=== PATIENT | female | born 1935 | race Caucasian/White ===

== ENCOUNTER 2017-07-14 14:14 | Emergency (ER) | payer MEDICARE, BC ==
[2017-07-14 14:52] VITALS: BP 124/69
--- NOTE | 2017-07-14 15:23 | UC ---
Isael Stephens Thomas, scribed for Gretel Walker MD on 07/14/17 at 1457 . Complaint Female HPI - HPI Summary HPI Summary: The pt is a 81 y/o F accompanied by her daughter and presenting to [facility] [place] c/o urinary urgency that began two days ago. The patient also complains of pain and pressure with urination. The pain is rated 4/10. The patient has treated the pain with nothing DOWEL POINTER. Pt additionally c/o chills. No fevers. Pt denies N/V/D, fever, back pain, hematuria, and vaginal pruritus, odor. She had similar symptoms two years ago. She is on medication for HTN, HLD, and GERD. She is on ASA 81. PMHx: breast cancer, spinal stenosis, HLD, GERD, anemia. PSHx: hysterectomy, bilateral total hip replacement. SHx: no smoking although household cigarette exposure, rare alcohol use, no illicit drug use. FHx: CAD, ME. The patients PCP is Dr. Garcia - wendyt next Wednesday Patients medication reviewed this visit. - History Of Current Complaint Stated Complaint: URINARY ISSUE Time Seen by Provider: 07/14/17 14:39 Hx Obtained From: Patient, Family/Pier Hand Helper - daughter present Onset/Duration: Lasting Days - 2, Still Present Timing: Constant Pain Intensity: 4 Pain Scale Used: 0-10 Numeric Aggravating Factor(s): Nothing Alleviating Factor(s): Nothing Associated Signs And Symptoms: Negative: Fever, Back Pain, Vaginal Bleeding/ Discharge, Vaginal Discharge, Nausea, Vomiting(# Of Episodes =) Related Hx: Similar Episode/Dx as: - Two years ago - Allergies/Home Medications Allergies/Adverse Reactions: Allergies Allergy/AdvReac Type Severity Reaction Status Date / Time Morphine AdvReac Nausea And Verified 04/08/15 14:54 Vomiting PMH/Surg Hx/FS Hx/Imm Hx Previously Healthy: No - GERD, spinal stenosis, HLD, anemia Cardiovascular History: Hypertension Cancer History: Breast Cancer - Surgical History Surgical History: Yes Surgery Procedure, Year, and Place: RIGHT TOTAL HIP REPLACEMENT- 7 YEARS AGO- [facility]. HYSTERECTOMY- CYSTOCELE AND RECTOCELE- [facility]. TONSILLECTOMY- AGE 38 -3 BLOOD TRANSFUSIONS. LEFT TOTAL HIP REPLACEMENT 03/19/15 - Family History Known Family History: Positive: Hypertension, Other - POS: [place] - Social History Occupation: Retired Lives: With Family Alcohol Use: Rare Alcohol Amount: 1 PER WEEK Substance Use Type: None Smoking Status (MU): Never Smoked Tobacco Household Exposure Type: Cigarettes - Immunization History Most Recent Influenza Vaccination: 2013 Most Recent Tetanus Shot: ?UP TO DATE Most Recent Pneumonia Vaccination: HAS HAD Review of Systems Constitutional: Negative, Other - NEG: fever Skin: Negative Eyes: Negative ENT: Negative Respiratory: Negative Cardiovascular: Negative Gastrointestinal: Negative Genitourinary: Dysuria, Frequency, Urgency, Other - POS: urinary pain (02/15) Motor: Negative Neurovascular: Negative Musculoskeletal: Negative Neurological: Negative Psychological: Negative All Other Systems Reviewed And Are Negative: Yes Physical Exam Triage Information Reviewed: Yes Appearance: Well-Appearing, No Pain Distress, Well-Nourished Vital Signs: Initial Vital Signs Temp 97.9 F 07/14/17 14:48 Pulse 83 07/14/17 14:48 Resp 20 07/14/17 14:48 BP 124/69 07/14/17 14:48 Pulse Ox 96 07/14/17 14:48 Eye Exam: Normal Eyes: Positive: Conjunctiva Clear ENT Exam: Normal ENT: Positive: Normal ENT inspection, Hearing grossly normal, Pharynx normal, TMs normal Dental Exam: Normal Neck exam: Normal Neck: Positive: Supple, Nontender, No Lymphadenopathy Respiratory Exam: Normal Respiratory: Positive: Chest non-tender, Lungs clear, Normal breath sounds Cardiovascular Exam: Normal Cardiovascular: Positive: RRR, No Murmur, Pulses Normal Abdominal Exam: Normal Abdomen Description: Positive: Nontender, No Organomegaly, Soft. Negative: CVA Tenderness (R), CVA Tenderness (L) Bowel Sounds: Positive: Present Musculoskeletal Exam: Normal Musculoskeletal: Positive: Strength Intact Neurological Exam: Normal Neurological: Positive: Alert Skin Exam: Normal Complaint Female Dx - Course Course Of Treatment: The patient is an 81 y/o F who complains of urinary urgency and pain that began two days ago. UA shows + leukocytes. Will start MAcrobid. culture. hydrate. APAP. Pt has PCP appt next Wednesday. pt and daughter in agreement with plan - Differential Dx/Diagnosis Provider Diagnoses: dysuria Discharge - Discharge Plan Condition: Stable Disposition: HOME Prescriptions: Nitrofurantoin Monohyd Macro [Macrobid] 100 mg PO BID #14 cap Patient Education Materials: Urinary Tract Infection in Women (ED) Referrals: Radha VILLA,Edy Kovacs [Primary Care Provider] - Additional Instructions: - stay well hydrated - drink plenty of non-alcoholic, non caffinated beverages - your urine will be further tested - if you require any changes to your treatment, we will contact you - this usually take 2 days - Take antibiotics as prescribed until gone - Contact your primary doctor to arrange a follow-up appointment next week. Contact your doctor or return with questions or concerns - Okay to take Tylenol every 6-8 hours as needed for discomfort The documentation as recorded by the Isael rosales Thomas accurately reflects the service I personally performed and the decisions made by me, Gretel Walker MD.
--- NOTE | 2017-07-16 17:35 | UC ---
Progress - Progress Note Progress Note: CALLED AND SPOKE WITH PT. URINE CULTURE WITH ENTEROBACTER WITH INTERMEDIATE SENSITIVITY TO MACROBID. PT REPORTS SHE IS FEELING BETTER AND HAS F/U WITH PCP ON 07/20/17. ADVISED TO CONTINUE COURSE AND RECHECK URINE WITH PCP. - JORGE LUIS LAST MD
== END 2017-07-14 15:24 | disposition home or self-care (01) ==
LOC: UCEAST 14:14
DX: R30.0 Dysuria (principal); I10 Essential (primary) hypertension; E78.5 Hyperlipidemia, unspecified; K21.9 Gastro-esophageal reflux disease without esophagitis
CPT/HCPCS: 81003; 87077; 87086; 87186; 99212; G0463

== ENCOUNTER 2019-12-15 12:18 | Inpatient (IN) | payer MEDICARE, BC ==
--- NOTE | 2019-12-15 12:22 | ED ---
Lower Extremity - HPI Summary HPI Summary: This pt is an 84 y/o female presenting to [facility] via EMS for left ankle pain s/p slip and fall today. Pt reports she was walking up the ramp into her house after having shoveled today when she slipped and fell. Pt states she landed on left ankle. Denies head strike or LOC. Pt notes she stood up on her left ankle immediately after falling but reports it was very painful. Pt then crawled into her house. Denies any left knee pain, right leg pain, right ankle pain, right knee pain. Denies any prior injury to left ankle. Pt denies any fever, chills, erythema of eyes, sore throat, chest pain, SOB, cough, abd pain, nausea, vomiting, dysuria, hematuria, myalgia, edema, rash, or dizziness. PMHx: HTN. Her PCP is Dr. Muhammad in [place]. Allergies to morphine, reaction is extreme nausea and vomiting. - History of Current Complaint Stated Complaint: L ANKLE DEFORMITY PER EMS Hx Obtained From: Patient, EMS Mechanism Of Injury: Fall From A Standing Position Onset of Pain: Immediate Onset/Duration: Minutes Severity Currently: Moderate Pain Intensity: 4 Pain Scale Used: 0-10 Numeric Timing: Lasting Minutes Location: Is Discrete @ - left ankle Associated Signs And Symptoms: Negative: Fever, Syncope, Knee Pain Aggravating Factor(s): Movement Alleviating Factor(s): Rest Able to Bear Weight: No - Allergies/Home Medications Allergies/Adverse Reactions: Allergies Allergy/AdvReac Type Severity Reaction Status Date / Time morphine Allergy Severe Nausea And Verified 12/15/19 12:25 Vomiting vancomycin Allergy See Comment Verified 12/15/19 12:26 Home Medications: Home Medications Cetirizine* [ZyrTEC 10 MG TAB*] 10 mg PO BEDTIME 12/15/19 [History Confirmed 05/27] Cholecalciferol TAB* [Vitamin D TAB*] 1,000 unit PO DAILY 12/15/19 [History Confirmed 12/15/19] Cranberry 400 mg PO DAILY 12/15/19 [History Confirmed 12/15/19] Furosemide TAB* [Lasix TAB*] 20 mg PO BID 12/15/19 [History Confirmed 12/15/19] Glucosamine CAP (NF) 1,500 cap PO BID 12/15/19 [History Confirmed 12/15/19] Latanoprost 0.005%* [Xalatan 0.005%*] 1 drop BOTH EYES QPM 12/15/19 [History Confirmed 12/15/19] Multivitamins/Minerals TAB* [Theragran/minerals TAB*] 1 tab PO DAILY 12/15/19 [ History Confirmed 12/15/19] Pantoprazole TAB * [Protonix TAB*] 40 mg PO DAILY 12/15/19 [History Confirmed ] Ubidecarenone [Coq-10 Tr] 200 mg PO DAILY 12/15/19 [History Confirmed 12/15/19] PMH/Surg Hx/FS Hx/Imm Hx Endocrine/Hematology History: Denies: Hx Diabetes, Hx Thyroid Disease Cardiovascular History: Reports: Other Cardiovascular Problems/Disorders - RIGHT BUNDLE BRANCH BLOCK- STATES HAS HAD FOR 20 YEARS Denies: Hx Congestive Heart Failure, Hx Hypertension Respiratory History: Denies: Hx Asthma, Hx Chronic Obstructive Pulmonary Disease (COPD) GI History: Reports: Hx Gastroesophageal Reflux Disease - HX OF - PRN MEDICATION FOR, Hx Irritable Bowel Denies: Hx Ulcer History: Reports: Hx Acute Renal Failure Denies: Hx Renal Disease Musculoskeletal History: Reports: Hx Arthritis - "THROUGHOUT" Sensory History: Reports: Hx Cataracts - BILATERAL, Hx Contacts or Glasses - GLASSES, Hx Glaucoma - BILATERAL Denies: Hx Hearing Aid Opthamlomology History: Reports: Hx Cataracts - BILATERAL, Hx Contacts or Glasses - GLASSES, Hx Glaucoma - BILATERAL - Cancer History Cancer Type, Location and Year: Breast - Surgical History Surgical History: Yes Surgery Procedure, Year, and Place: RIGHT TOTAL HIP REPLACEMENT- 7 YEARS AGO- [facility]. HYSTERECTOMY- CYSTOCELE AND RECTOCELE- [facility]. TONSILLECTOMY- AGE 38 -3 BLOOD TRANSFUSIONS. LEFT TOTAL HIP REPLACEMENT 03/19/15 - Dr. Tarango Hx Anesthesia Reactions: Yes - LOW BLOOD PRESSURE WITH HIP SURGERY- [facility]/ [facility]- TONSILLECTOMY Infectious Disease History: Denies: Hx Hepatitis, Hx Human Immunodeficiency Virus (HIV), Hx Shingles - Family History Known Family History: Positive: Hypertension, Other - POS: [place] - Social History Alcohol Use: Rare Alcohol Amount: 1 PER WEEK Substance Use Type: Reports: None Smoking Status (MU): Never Smoked Tobacco Review of Systems Negative: Fever, Chills Negative: Erythema Negative: Sore Throat Negative: Chest Pain Negative: Shortness Of Breath, Cough Negative: Vomiting, Nausea Negative: dysuria, hematuria Musculoskeletal: Other - POSITIVE: left ankle pain, left ankle deformity Negative: Myalgia, Edema Negative: Rash Neurological: Other - NEGATIVE: dizziness All Other Systems Reviewed And Are Negative: Yes Physical Exam - Summary Physical Exam Summary: Constitutional: Well-developed, Well-nourished, Alert. (-) Distressed Skin: Warm, Dry HENT: Normocephalic; Atraumatic Eyes: Conjunctiva normal Neck: Musculoskeletal ROM normal neck. (-) JVD, (-) Stridor, (-) Tracheal deviation Cardio: Rhythm regular, rate normal, Heart sounds normal; Intact distal pulses; The pedal pulses are 2+ and symmetric. Radial pulses are 2+ and symmetric. (-) Murmur Pulmonary/Chest wall: Effort normal. (-) Respiratory distress, (-) Wheezes, (-) Rales Abd: Soft, (-) Tenderness, (-) Distension, (-) Guarding, (-) Rebound Musculoskeletal: Left ankle is deformed and edematous. Patient is able to move toes. Dorsalis pedis pulse is present. Lateral malleolus is tender. Lymph: (-) Cervical adenopathy Neuro: Alert, Oriented x3 Psych: Mood and affect Normal Triage Information Reviewed: Yes Vital Signs On Initial Exam: Initial Vitals Temp Pulse Resp BP Pulse Ox 97.4 F 66 18 161/85 95 12/15/19 12:22 12/15/19 12:22 12/15/19 12:22 12/15/19 12:22 12/15/19 12:22 Vital Signs Reviewed: Yes Procedures - Procedure Summary Procedure Summary: Pre-sedation Assessment I verified that patient has no history of asthma or sleep apnea. Patient has no dentures partials or plates. Patient reports she became hypotensive in surgery previously but has stopped metoprolol since then. Her blood pressure is 160/85 prior to procedure. - Sedation Patient Received Moderate/Deep Sedation with Procedure: Yes Are You The Provider Who Administered The Sedation: [place] of Provider Whom Sedated Patient: Madi Adair - Laboratory Result Diagrams: 12/15/19 13:33 12/15/19 13:33 Lab Statement: Any lab studies that have been ordered have been reviewed, and results considered in the medical decision making process. - Radiology Left ankle XR Radiology Interpretation Completed By: ED Physician - Preliminary read shows ankle dislocation with trimalleolar ankle fracture., Radiologist Summary of Radiographic Findings: IMPRESSION: #. Talocrural joint fracture dislocation. The talus and remainder of the foot are dislocated posteriorly relative to the dominant portion of the tibial plafond and. #. Comminuted lateral malleolus fracture with one bone width lateral and posterior displacement with the lateral malleolus fragment standing aligned with the talus. #. Avulsion fracture at the medial malleolus is also displaced posteriorly with the talus. #. Severe diffuse soft tissue swelling. No subcutaneous emphysema evident. Dr. Morley has reviewed this report. Left foot XR Radiology Interpretation Completed By: Radiologist Summary of Radiographic Findings: IMPRESSION: 1. Dislocation of the talocrural joint. 2. Displaced fracture of the medial and lateral malleoli. Dr. Morley has reviewed this report. Left ankle XR post reduction Radiology Interpretation Completed By: Radiologist Summary of Radiographic Findings: IMPRESSION: Again noted are fractures of the distal tibia and distal fibula with persistent anterior displacement of the tibia with respect to the talus. Dr. Morley has reviewed this report. - EKG 1300 Cardiac Rate: Bradycardia - at 59 bpm EKG Rhythm: Sinus Bradycardia Summary of EKG Findings: EKG at 1300 shows sinus bradycardia at a rate of 59 bpm. No STEMI. This EKG was interpreted and reviewed by ED physician. Re-Evaluation - Re-Evaluation First Eval Re-Evaluation Time: 12:46 Comment: Discussed preliminary read of XRs with patient. Lower Extremity Course/Dx - Course Assessment/Plan: Pt is an 84 y/o female presenting to [facility] via EMS for left ankle pain s/p slip and fall today. Pt reports she was walking up the ramp into her house after having shoveled today when she slipped and fell. Pt states she landed on left ankle. Denies head strike or LOC. Blood work obtained. Left ankle XR shows IMPRESSION: #. Talocrural joint fracture dislocation. The talus and remainder of the foot are dislocated posteriorly relative to the dominant portion of the tibial plafond and. #. Comminuted lateral malleolus fracture with one bone width lateral and posterior displacement with the lateral malleolus fragment standing aligned with the talus. #. Avulsion fracture at the medial malleolus is also displaced posteriorly with the talus. #. Severe diffuse soft tissue swelling. No subcutaneous emphysema evident. Left foot XR shows 1. Dislocation of the talocrural joint. 2. Displaced fracture of the medial and lateral malleoli. Discussed pt care with Dr. Engel, orthopedist, who is requesting a reduction in the ED and he will see the patient. Dr. Engel reports surgery likely this weekend and likely hospitalist admission. Sedation and reduction were performed in the ED. Please see the providers' procedure notes. Discussed with Dr. Damico, hospitalist, who accepted the pt for admission. Post reduction left ankle XR IMPRESSION Again noted are fractures of the distal tibia and distal fibula with persistent anterior displacement of the tibia with respect to the talus. Informed Dr. Engel of unsuccessful reduction. Dr. Engel will come down to see patient and will likely sedate in the ED again. - Diagnoses Provider Diagnoses: Fracture dislocation of left ankle - Physician Notifications Discussed Care Of Patient With: Rambo Engel Time Discussed With Above Provider: 14:15 Instructed by Provider To: Other - Discussed pt care with Dr. Engel, orthopedist, who is requesting a reduction in the ED and he will see the patient. Dr. Engel reports surgery likely this weekend and likely hospitalist admission. [16:07] Informed Dr. Engel of unsuccessful reduction. Dr. Engel will come down to see patient and will likely sedate in the ED again. Discharge ED - Sign-Out/Discharge Documenting (check all that apply): Patient Departure - Admit to [facility] [place] - Discharge Plan Condition: Stable Disposition: ADMITTED TO [facility] Referrals: No Primary Care Phys,NOPCP [Medical Doctor] - - Attestation Statements Document Initiated by Scribe: Yes Documenting Scribe: Cristine Flaherty Provider For Whom Scribe is Documenting (Include Credential): Hayden Mroley MD Scribe Attestation: Cristine Stephens, scribed for Hayden Morley MD on 12/15/19 at 1633. Status of Scribe Document: Viewed
[2019-12-15] MEDS ORDERED: HYDROcodone/ACETAMIN 5-325 MG* 1 TAB PO ONE (12:23)
[2019-12-15 13:43] LABS: Hematocrit 39 % (35-47); Mean Corpuscular HGB Conc 34 g/dL (31-36); Mean Corpuscular Hemoglobin 31 pg (27-31); Mean Corpuscular Volume 93 fL (80-97); Mean Platelet Volume 8.1 fL (7.4-10.4); Platelet Count 203 10^3/uL (150-450); Red Blood Count 4.16 10^6 /uL (3.70-4.87); Red Cell Distribution Width 13 % (10-15); White Blood Count 8.3 10^3/uL (3.5-10.8)
[2019-12-15 13:54] LABS: Activated Partial Thrombo Time 26.2 seconds (26.0-38.0); Albumin 3.9 g/dL (3.2-5.2); Calcium 9.3 mg/dL (8.6-10.3); INR 0.97 (0.82-1.09); Total Bilirubin 0.4 mg/dL (0.2-1.0)
[2019-12-15 14:00] LABS: Albumin/Globulin Ratio 1.4 (1-3); BUN/Creatinine Ratio 22.9 (8-20); EGFR African American 66.7 (>60); EGFR Non-African American 55.1 (>60); Globulin 2.8 g/dL (2-4); Total Protein 6.7 g/dL (6.4-8.9)
[2019-12-15] MEDS ORDERED: Propofol* 10 MG/ML 20 ML BTL IV PUSH ONE ×3 (14:35→16:40)
--- NOTE | 2019-12-15 15:22 | ED ---
ED Sedation - Procedural Sedation/Analgesia Sedation Course: RT Present, Emergency Airway Equipment Available, Informed Consent Obtained, Time Out Completed, End-tidal Capnography Utilized Adverse Reactions Experienced by Patient: None Mallampati Classification: Class IV ASA Classification: Class IV: Severe Systemic Disease/Constant Threat to Health Diagnosis: left medial and lateral malleoli fracture and dislocation Pre-Procedural Heart: S1 and S2 Pre-Procedural Lungs: Clear Auscultation Comment/Plan of Care: reduction of left bimalleolar reduction, using Propofol Provider Procedure Attestation: With My Signature Below, I Attest to have Personally Reviewed and Agree with the Pre-Sedation History and Pre-Service Assessment Update Cleared for Moderate Sedation: Yes Pre-Procedural Diagnosis: left medial and lateral malleoli fracture and dislocation Post-Procedural Diagnosis: left medial and lateral malleoli fracture and dislocation Procedure: reduction of left bimalleolar dislocation Estimated Blood Loss: None Specimen(s): None Findings: None Implants/Tubes/Drains Placed: None Attestations Scribe Attestation: Document initiated by bobby. Tania Stephens scribed for Dr. Madi Adair MD on 12/15/19 at 1525. User Type: Provider with Scribe Provider Attestation: The documentation recorded by the scribe accurately reflects the service I personally performed and the decisions made by me.
--- NOTE | 2019-12-15 15:40 | ED ---
ED Procedures - Procedure Summary Procedure Summary: Pre-sedation Assessment I verified that patient has no history of asthma or sleep apnea. Patient has no dentures partials or plates. Patient reports she became hypotensive in surgery previously but has stopped metoprolol since then. Her blood pressure is 160/85 prior to procedure. - Splinting Left Lower Extremity Location: Left ankle Hand-Made Type: fiberglass - 51 inches used Splint: posterior walking Pre-Proc Neuro Vasc Exam: normal Post-Proc Neuro Vasc Exam: normal Splint Applied by Provider: Jefferson Saleem - Joint Reduction Left Talocrural Joint Reduction Site: ankle (L) Conscious Sedation: Yes - Done by Dr. Adair Reduction Attempts: 1 Pre-Procedure NV Exam: Yes Post Joint Reduction Film: joint not reduced
[2019-12-15] MEDS ORDERED: Acetaminophen TAB* 325 MG PO PRN (16:14)
[2019-12-15] MEDS ORDERED: Al Hydrox/Mg Hydrox/Simet LIQ* 30 ML UDC PO PRN (16:14)
[2019-12-15] MEDS ORDERED: oxyCODONE/Acetamin 5/325 MG* TAB PO PRN (16:14)
[2019-12-15] MEDS ORDERED: hydrALAZINE IV* 20 MG/ML VIAL IV SLOW PU PRN (16:20)
[2019-12-15] MEDS ORDERED: oxyCODONE/Acetamin 5/325 MG* TAB PO ONE (17:03)
--- NOTE | 2019-12-15 17:09 | ED ---
ED Sedation - Procedural Sedation/Analgesia Sedation Course: RT Present, Emergency Airway Equipment Available, Informed Consent Obtained, Time Out Completed, End-tidal Capnography Utilized Adverse Reactions Experienced by Patient: None Mallampati Classification: Class IV ASA Classification: Class IV: Severe Systemic Disease/Constant Threat to Health Diagnosis: left lateral and medial malleoli fracture and dislocation Pre-Procedural Heart: S1 and S2 Pre-Procedural Lungs: Clear Auscultation Comment/Plan of Care: reduction of left bimalleolar dislocation, using Propofol Provider Procedure Attestation: With My Signature Below, I Attest to have Personally Reviewed and Agree with the Pre-Sedation History and Pre-Service Assessment Update Cleared for Moderate Sedation: Yes Pre-Procedural Diagnosis: left lateral and medial malleoli fracture and dislocation Post-Procedural Diagnosis: left lateral and medial malleoli fracture and dislocation Procedure: reduction of left bimalleolar dislocation Estimated Blood Loss: None Specimen(s): None Findings: None Implants/Tubes/Drains Placed: None - Attestation Statements Document Initiated by Scribe: Yes Documenting Scribe: Tania Lai Provider For Whom Sheng is Documenting (Include Credential): Dr. Madi Adair MD Scribe Attestation: I, Tania Lai, scribed for Dr. Madi Adair MD on 12/15/19 at 1850. Scribe Documentation Reviewed: Yes Provider Attestation: The documentation as recorded by the Tania rosales accurately reflects the service I personally performed and the decisions made by me, Dr. Madi Adair MD Status of Scribe Document: Viewed
--- NOTE | 2019-12-15 17:30 | PN ---
Progress Note - Progress Note Date of Service: 12/15/19 Note: CC: Left ankle HPI: 84 yo female, lives alone, went out to shovel snow. Was coming in when she slipped and twisted the left ankle. Immediate pain and deformity. Brought to the ED and x-rays showed a displaced trimalleolar fx. Underwent closed reduction with the ED and sill was displaced. I had been called and did arive for a repeat reduction. PE: Left ankle: splnt was in place. She could wiggle her toes a little, good sensation over the FDWS. A; Displaced ankle fx Plan: Discussed a repeat closed reduction and she was quite willing. She was sedated by Dr. Adair and I performed a reduction. A nice thunk was obtained a sthe ankle slid into place and foot sat straight under the tibia. Posterior mold splint applied. Unfortunately, x-rays showed she was again displaced. Discussed with her and her daughter a open reduction with internal fixation tomorrow AM as she has proved she is unstable and will slide out of place.
--- NOTE | 2019-12-15 18:06 | HP ---
History of Present Illness - History of Present Illness Reason for Visit: Fall with left ankle pain History of Present Illness: Mrs. Arreaga is an 84-year-old female patient with history of HTN, GERD, IBS, chronic renal failure, glaucoma, Breast cancer, and bilateral total hip replacements. Pt reports today around 1030 am she was shoveling snow off wheelchair ramp at her home. Pt's left leg slipped out, pt fell onto ramp injuring left ankle. Pt reports severe pain in left ankle with movement, denies taking medication for pain control. Pt did not strike her head. Prior to and after fall, pt denies dizziness, denies chest pain, denies SOB. Pt denies other injuries. Pt reports that she was unable to stand so she crawled back into her home and called 911. - Past Medical History Cardiac: HTN Gastrointestinal: GERD, Irritable bowel disease Heme/Onc: Cancer - Left Breast Cancer Psych: Anxiety Musculoskeletal: Osteoarthritis ENT: Other - Glaucoma Renal/: Chronic renal failure Grav: 4 - hydatidiform mole 1959 Para: 3 - Past Surgical History Past Surgical History: Cataract Removal, Hysterectomy - 1971, Other - left breast lumpectomy 2016, Total Hip Replacement - Right total hip replacement. Left total hip replacement with exploratory surgery to r/o abcess related to mass seen on xray. No abcess found hematoma only, Tonsillectomy - 1972 - Past Family History Family History: Cancer - Father: "throat cancer" at 92 yoa, DM - father , Other - Father CHF, Mother CHF related to "congenital heart defect" mother at 86 yoa - Past Social History Smoke: No Alcohol: Rare Drugs: None Lives: Alone Domestic Violence: Negative Review of Systems - Measurements Intake and Output: Intake and Output Last 24 Hours 12/13/19 12/14/19 12/15/19 12/16/19 06:59 06:59 06:59 06:59 Weight 188 lb - Review of Systems General Comments: pt denies any unintended weight loss, reports intermittent anorexia related to loss of spouse 07/2019. Poor sleep habits since loss of spouse. Pt denies abnormal bleeding. Constitutional Symptoms: Negative: Weight Gain, Weight Loss, Weakness, Fatigue, Fever, Night Sweats, Unexplained Falls Dermatology: Positive: Normal Negative: Skin Lesions, Cancer, Skin Lumps HEENT: Positive: Normal Negative: Change in Hearing, Vertigo, Dental Problems, Tinnitus, Sinus Problem Eyes: Positive: Glaucoma, Contacts or Glasses Negative: Change in Vision, Double Vision Thyroid: Positive: Normal Pulmonary: Positive: Normal Negative: Cough, Sputum, Hemoptysis, Wheezing, Respiratory Distress, Shortness of Breath, COPD, Asthma, Exercise Intolerance, Home Oxygen Cardiology: Positive: Normal Negative: Chest Pain, Shortness of Breath, Palpitations, Swelling of Ankles, Peripheral Vascular Dis, Edema, Faintness, Syncope, Claudication, Proximal NocturnalDyspnea, Orthopnoea Gastroenterology: Positive: Normal Negative: Abdominal Pain, Nausea, Vomiting, Anorexia, Indigestion, Difficulty Swallowing, Heartburn, Constipation, Diarrhea, Blood in Stools, Change in Bowel Habits, Haematemesis, Melena, Other Genital - Urinary: Positive: Normal Negative: Dysuria, Hematuria, Polyuria, Nocturia, Other Genitourinay - Female: Negative: Menses Normal, Vaginal Discharge, Menopause, Dysmenorrhea, Other Musculoskeletal: Positive: Joint Pain - Left ankle pain Negative: Joint Stiffness, Arthritis, Osteoporosis, Low Back Pain, Sciatica, Kyphoscoliosis Endocrinology: Positive: Normal Negative: Thyroid Problems, Adrenal Problems, Gonadal Problems, Family Hx Endocrine Disorders, Obesity, Diabetes Mellitus, Hyperglycemia, Hx Hypoglycemia , Diabetic Foot Ulcers, Calluses, Hirsutism, Menstrual Abnormalities, Polydipsia , Polyuria, Gonadal Problems, Gynecomastia, Pituitary disease, Other Hematologic/Lymphatic: Negative: Anemia, Easy Bruising, Hx Leukemia, Hx Lymphoma, Use of Anticoagulant, Use of Antiplatelet Drugs, Other Neurology: Positive: Normal Negative: Headache, Migraines, Change in Vision, Diplopia, Dizziness, Change in Balancing, Change in Coordination, Change in Memory, Change in Speech, Change in Sphincter Function, Change in Walking, Numbness\\Paresthesiae, Unexplained Weakness, Hx of Stroke\\TIA, Hx of Seizures, Other Psychiatry: Positive: Anxiety Negative: Normal, Depression, Depressed Mood, Anhedonia, Sexual Dysfunction, Weight Change, Guilt Feelings, Tearfulness, Unusual Fatigue, Unusual Anxiety, Suicidal Ideation, Hypomania, Eating Disorders, Other Allergic/Immunologic: Positive: Other - Morphine: Extreme nausea and vomiting. Vancomycin: Ijeoma syndrome Negative: Hx Anaphylaxis, Hx Angioedema, Hx Environmental, Hx Seasonal, Asthma, Hx HIV, Immunocompromise, Swollen Glands LymphNodes Objective Active Medications: Acetaminophen (Tylenol Tab*) 650 mg PO Q4H PRN PRN Reason: PAIN-MILD/TEMP >/= 100.4 Al Hydrox/Mg Hydrox/Simethicone (Maalox Plus*) 30 ml PO Q6H PRN PRN Reason: INDIGESTION Cetirizine HCl (Zyrtec*) 10 mg PO BEDTIME [facility] Docusate Sodium (Colace Cap*) 100 mg PO BID [facility] Furosemide (Lasix Tab*) 20 mg PO BID [facility] Stop: 12/15/19 23:59 Heparin Sodium (Porcine) (Heparin Vial(*)) 5,000 units SUBCUT Q8HR [facility] Stop: 12/15/19 23:59 Hydralazine HCl (Apresoline Iv*) 5 mg IV SLOW PU Q6H PRN PRN Reason: HTN Latanoprost (Xalatan 0.005%*) 1 drop BOTH EYES QPM [facility] Oxycodone/Acetaminophen (Percocet 5/325 Tab*) 1 tab PO Q4H PRN PRN Reason: PAIN - MODERATE Pantoprazole Sodium (Protonix Tab*) 40 mg PO DAILY [facility] Paroxetine HCl (Paxil Tab*) 10 mg PO QAM [facility] Vital Signs - 8 hr 12/15/19 12/15/19 12/15/19 12:22 12:23 14:31 Temperature 97.4 F Pulse Rate 66 59 Respiratory 18 Rate Blood Pressure 161/85 161/85 (mmHg) O2 Sat by Pulse 95 95 Oximetry 12/15/19 12/15/19 12/15/19 14:46 14:54 14:58 Temperature Pulse Rate 59 62 63 Respiratory Rate Blood Pressure 180/86 161/75 151/75 (mmHg) O2 Sat by Pulse 99 97 96 Oximetry 12/15/19 12/15/19 12/15/19 15:00 15:04 15:06 Temperature Pulse Rate 57 57 Respiratory 18 Rate Blood Pressure 154/73 145/69 (mmHg) O2 Sat by Pulse 98 98 Oximetry 12/15/19 12/15/19 12/15/19 15:16 16:00 16:50 Temperature Pulse Rate 59 60 64 Respiratory Rate Blood Pressure 169/88 178/93 (mmHg) O2 Sat by Pulse 100 98 98 Oximetry 12/15/19 12/15/19 12/15/19 16:54 17:00 17:19 Temperature Pulse Rate 61 59 Respiratory 16 Rate Blood Pressure 147/74 (mmHg) O2 Sat by Pulse 97 97 Oximetry Oxygen Devices in Use Now: Nasal Cannula Appearance: Mrs. Arreaga is an 84 year-old obese, female patient. Laying in ED stretcher with left leg elevated. She does not appear to be in any acute distress. Eyes: No Scleral Icterus, PERRLA Ears/Nose/Mouth/Throat: NL Teeth, Lips, Gums, Clear Oropharnyx, Mucous Membranes Moist Neck: NL Appearance and Movements; NL JVP, Trachea Midline, No Thyroid Enlargement, Masses Respiratory: Symmetrical Chest Expansion and Respiratory Effort, Clear to Auscultation Cardiovascular: NL Sounds; No Murmurs; No JVD, RRR, No Edema Abdominal: NL Sounds; No Tenderness; No Distention, No Hepatosplenomegaly Extremities: No Edema, No Clubbing, Cyanosis, - - +2 dorsalis pedal pulses bilaterally. Left lower leg wrapped in josé luis bandage and splinted following joint reduction by ED physician. Skin: No Rash or Ulcers, No Nodules or Sclerosis Neurological: Alert and Oriented x 3, NL Sensation, NL Muscle Strength and Tone Result Diagrams: 12/15/19 13:33 12/15/19 13:33 Diagnostic Imaging: Imaging in ED. 2 view left ankle interpreted as Talocrural joint fracture dislocation, comminuted lateral malleolus fracture with one bone width lateral and posterior displacement with lateral malleolus fragment standing aligned with the talus. Avulsion fracture at the medial malleolus also displaced posteriorly with the talus. Severe diffuse soft tissue swelling. EKG Data: QRS duration slightly higher from pervious ekg. EKG reading is sinus quirino at 59bpm with nonspecific intraventricular conduction delay and prolonged QRS duration. Assess/Plan/Problems-Billing Assessment: Mrs. Arreaga is an 78-year-old female patient with history of HTN, GERD, Anxiety , Glaucoma, Laryngospasms, Left breast CA, Total R hip arthroplasty, and Total Left hip arthroplasty. Arrives at ED today via ambulance with complaint of left ankle pain with deformity. On evaluation patient was found to have left ankle fracture. She will be admitted inpatient status for: 1. Left ankle fracture. Pt will be admitted to for surgical procedure scheduled 12/16/19 at approx 1000 am. Preop evaluation RCRI score of 3.9% increased 30 Day risk for serious events following surgery. Pt's ACS score for serious complications is 1.7%, for any complications there is a 2.2% risk. There are no modifiable risk factor at this point. Pt is optimized and determined to be an acceptable candidate for the anticipated procedure. 2. HTN: Today patients BP has been elevated all day, systolic 160's to 150's, pt 's PRN dose of lasix will be ordered for hypertension. I will continue pt's home medications HCTZ and PRN lasix. Also for added BP control hydralazine IV ordered PRN Q6H. Pt takes daily HCTZ with good control at home per patient and will take a PRN dose of Lasix if blood pressure is elevated with increased edema in lower extremities. Will hold doses in morning for surgical procedure and restart after, will address on daily basis. 3. Gerd. Asymptomatic for GERD well controlled on pantoprazole. I will order Maalox as needed for added symptom control. 4. Anxiety: Patient has developed anxiety since her 07/2019. Ever since patient has been taking paxil daily. Will continue management of anxiety with paxil in hospital. Pt becomes upset and tearful when speaking about her . pt has also developed sleep and appetite disturbance due to spouses . 5. Glaucoma: Pt is without any symptoms of glaucoma, well controlled with latanoprost will continue medication from home. 6. Laryngospasm: Pt reports that she develops laryngospasms after talking too much, she has found that Levocetirizine at bedtime has decreased the occurrence of laryngospasms. Levocetirizine will be continued throughout admission. 7. Fluids, electrolytes and nutrition: This patient will be NPO after midnight with sips of water for PO medications. 8. DVT prophylaxis: Heparin to be started, one dose prior to surgery. Orthopedic surgeons will decide on post-op resumption of DVT prophylaxis. 9. Advance Directives: Pt's daughter reports she is a DNR and has a MOLST form at home. She will bring form to the hospital tomorrow. - Patient Problems (1) Ankle fracture, left Comment: -Left ankle fracture after slip and fall on ice -Surgical repair 12/16/19 -Moderate pain use percocet -Mild pain use acetaminophen (2) Hypertension Comment: -Hypertension is well controlled at home with HCTZ and PRN Lasix. -Pt will remain on same regimen. -Hydralazine IVP PRN for additional control. (3) Anxiety Current Visit: Yes Status: Acute Code(s): F41.9 - ANXIETY DISORDER, UNSPECIFIED SNOMED Code(s): 14194746 Comment: -Pt becomes teary when speaking about her late also experiences sleep disturbance. -Will continue home regimen of paxil daily. (4) GERD (gastroesophageal reflux disease) Comment: GERD well controlled at home Will continue regimen of pantoprazole Addition of Maalox to regimen PRN for breakthrough reflux. (5) Glaucoma Comment: -Pt is without symptoms of glaucoma. -Well controlled with latanoprost eye drops. -Will continue latanoprost throughout admission. (6) Laryngospasms Comment: -Laryngospasms occure when patient speaks too much -Has found they occur less when takes antihistimine -Will substitute home Zyrtec while in hospital. (7) DVT prophylaxis Comment: -Pt will be started on Heparin for DVT prophylaxis. -Will recieve one dose prior to surgery tomorrow. -Orthopedics will decide if DVT prophylaxis will continue after surgery. Status and Disposition: Inpatient, admit to orthopedics Counseling and/or Coordination of Care Minutes: Time spent on the admission was 60 minutes Points of Discussion: Time spent on the admission was 60minutes, greater than half the time spent face -to-face with the patient obtaining my history and physical, other half time spent going over the plan of care with the patient and implementing plan of care. Dr. Damico in agreement with plan of care. Attending: Nicolasa Damico
[2019-12-15] MEDS ORDERED: Furosemide TAB* 20 MG PO PRN (20:23)
[2019-12-15] MEDS: Atorvastatin* 10 MG TAB PO SCH (20:56)
[2019-12-15] MEDS: Cetirizine* 10 MG TAB PO SCH (20:56)
[2019-12-15] MEDS: Latanoprost 0.005%* 2.5 ml BTL BOTH EYES SCH (20:57)
[2019-12-15] MEDS: Docusate CAP* 100 MG PO SCH (20:57)
[2019-12-15] MEDS ORDERED: LevoCETirizine TAB (NF) 5 MG TAB PO SCH (21:00)
[2019-12-15] MEDS ORDERED: Furosemide TAB* 20 MG PO SCH (21:00)
[2019-12-15] MEDS ORDERED: Heparin VIAL(*) 5000 UNITS/ML VIAL (FIVE THOUSAND) SUBCUT SCH (22:00)
[2019-12-16] MEDS: Aspirin EC TAB* 81 MG TAB.EC PO SCH (07:26)
[2019-12-16] MEDS: Acetaminophen TAB* 325 MG PO SCH ×3 (07:26→23:23)
[2019-12-16] MEDS: Docusate CAP* 100 MG PO SCH ×2 (07:27→21:54)
[2019-12-16] MEDS: Multivitamins/Minerals TAB PO SCH (07:27)
[2019-12-16] MEDS: Cholecalciferol TAB* 1000 UNITS PO SCH (07:27)
[2019-12-16] MEDS: Pantoprazole TAB * 40 MG TAB PO SCH (07:27)
[2019-12-16] MEDS: PARoxetine HCL TAB* 10 MG PO SCH (07:27)
[2019-12-16] MEDS: Vitamin E CAP* 400 UNIT PO SCH (07:27)
[2019-12-16] MEDS: Hydrochlorothiazide TAB* 25 MG PO SCH (07:47)
[2019-12-16] MEDS: oxyCODONE TAB* 5 MG TAB PO PRN ×3 (07:47→21:55)
--- NOTE | 2019-12-16 08:20 | PN ---
Subjective Date of Service: 12/16/19 Interval History: Mr. Arreaga reports that she continues to have pain in her left ankle, last given pain medication about an hour ago. Would welcome additional pain meds. She denies other complaint including chest pain, SOB, nausea or abdominal pain. Was told by Dr Engel that surgery would likely happen around 11am. Objective Active Medications: Acetaminophen (Tylenol Tab*) 975 mg PO TID [facility] Al Hydrox/Mg Hydrox/Simethicone (Maalox Plus*) 30 ml PO Q6H PRN Aspirin (Aspirin Ec Tab*) 81 mg PO DAILY [facility] Atorvastatin Calcium (Lipitor*) 10 mg PO BEDTIME [facility] Cetirizine HCl (Zyrtec*) 10 mg PO BEDTIME [facility] Cholecalciferol (Vitamin D Tab*) 1,000 units PO DAILY [facility] Docusate Sodium (Colace Cap*) 100 mg PO BID [facility] Furosemide (Lasix Tab*) 20 mg PO DAILY [facility] Hydralazine HCl (Apresoline Iv*) 5 mg IV SLOW PU Q6H PRN Hydrochlorothiazide (Hydrodiuril Tab*) 12.5 mg PO DAILY [facility] Latanoprost (Xalatan 0.005%*) 1 drop BOTH EYES QPM [facility] Multivitamins/Minerals (Theragran/Minerals Tab*) 1 tab PO DAILY [facility] Oxycodone HCl (Roxycodone Tab*) 5 mg PO Q4H PRN Oxycodone HCl (Roxycodone Tab*) 10 mg PO Q4H PRN Pantoprazole Sodium (Protonix Tab*) 40 mg PO DAILY [facility] Paroxetine HCl (Paxil Tab*) 10 mg PO QAM [facility] Vitamin E (Vitamin E Cap*) 400 unit PO DAILY [facility] Vital Signs: Temp Pulse Resp BP Pulse Ox 98.8 F 69 18 135/66 92 12/16/19 04:22 12/16/19 04:22 12/16/19 07:47 12/16/19 04:22 12/16/19 04:22 Oxygen Devices in Use Now: None Appearance: Female lying in bed in NAD Eyes: No Scleral Icterus Ears/Nose/Mouth/Throat: Mucous Membranes Moist Neck: Trachea Midline Respiratory: Symmetrical Chest Expansion and Respiratory Effort, Clear to Auscultation Cardiovascular: NL Sounds; No Murmurs; No JVD, No Edema Abdominal: NL Sounds; No Tenderness; No Distention Extremities: No Edema Skin: No Rash or Ulcers Neurological: Alert and Oriented x 3 Nutrition: - - NPO Result Diagrams: 12/15/19 13:33 12/15/19 13:33 Additional Lab and Data: . Diagnostic Imaging: . EKG Data: . Assess/Plan/Problems-Billing Assessment: Mrs. Arreaga is an 78-year-old female patient with history of HTN, GERD, Anxiety , Glaucoma, Laryngospasms, Left breast CA, Total R hip arthroplasty, and Total Left hip arthroplasty who was admitted on 12/15/19 with a left ankle fracture. - Patient Problems (1) Ankle fracture, left Comment: - Plan for surgical repair 12/16/[address] Engel. Preop evaluation RCRI score of 3.9% increased 30 Day risk for serious events following surgery. Pt's ACS score for serious complications is 1.7%, for any complications there is a 2.2% risk. There are no modifiable risk factor at this point. Pt is optimized and determined to be an acceptable candidate for the anticipated procedure. - Pain meds prn with bowel regimen, nurse alerted to need administer additional pain meds this AM. Will change regimen as needed. - Monitor H/H (2) Hypertension Comment: - BP relatively well controlled - Continue hctz with lasix prn (3) Anxiety Comment: - With depression - Continue paxil. (4) Glaucoma Comment: - Continue latanoprost (5) GERD (gastroesophageal reflux disease) Comment: - Continue pantoprazole. (6) Hyperlipidemia Comment: - Continue Zocor (7) DVT prophylaxis Comment: - Hep SQ. (8) DNR (do not resuscitate) Comment: Status and Disposition: Inpatient, anticipate need for rehab.
[2019-12-16] MEDS ORDERED: Pantoprazole TAB * 40 MG TAB PO SCH (09:00)
[2019-12-16] MEDS ORDERED: amLODIPine TAB* 5 MG PO ONE (09:00)
[2019-12-16] MEDS ORDERED: Bupivacaine 0.5%* 50 ML MDV VIAL ONE (09:12)
[2019-12-16] MEDS ORDERED: fentaNYL* 50 MCG/ML 2 ML VIAL (100 MCG VIAL) ONE (09:17)
[2019-12-16] MEDS ORDERED: EPHEDrine (Pressors)* 50 MG/ML VIAL ONE (09:17)
[2019-12-16] MEDS ORDERED: ceFAZolin 2 GM PREMIX in ORs 2 GM/50 ML BAG ONE (09:17)
[2019-12-16] MEDS ORDERED: Ondansetron INJ* 2 MG/ML VIAL ONE (09:17)
[2019-12-16] MEDS ORDERED: Propofol* 10 MG/ML 20 ML BTL ONE (09:17)
[2019-12-16] MEDS ORDERED: Phenylephrine 40 MCG/ML SYRINGE ONE (09:17)
[2019-12-16] MEDS ORDERED: Sugammadex * 200 MG/2 ML VIAL IV PUSH ONE (09:17)
[2019-12-16] MEDS ORDERED: Rocuronium* 10 MG/ML VIAL ONE (09:18)
[2019-12-16] MEDS ORDERED: Lidocaine 2% PF * 5 ML VIAL ONE (09:18)
[2019-12-16] MEDS ORDERED: NS 0.9% 1000 ML** 1,000 ML IV SCH (13:15)
--- NOTE | 2019-12-16 18:16 | OP ---
DATE OF OPERATION: 12/16/19 - ROOM #350 DATE OF : 31 ATTENDING SURGEON: Rambo Engel MD ANESTHESIA: General. PRE-OP DIAGNOSIS: Displaced left ankle fracture/dislocation. POST-OP DIAGNOSIS: Displaced left ankle fracture/dislocation. OPERATIVE PROCEDURE: Open reduction/internal fixation, left ankle fracture. ESTIMATED BLOOD LOSS: 75 cc. COMPLICATIONS: None. SUMMARY: Ms. Arreaga is an 84-year-old female who had slipped coming back in after shoveling snow yesterday. She had an obvious deformity to the ankle, was brought to the emergency room here at [facility] [place]. The ED department attempted to do a closed reduction, which they felt was successful, but she still was dislocated by x-ray. I also had done a closed reduction afterwards with conscious sedation and we had a very specific clunk of relocation and she looked good, and she was splinted, but follow up x-rays in the splint again showed her to be dislocated. I discussed with her she has demonstrated she has a very unstable fracture and then an ORIF should work well to hold the ankle in place while it heals in a more anatomic position. Risk of surgery such as infection, scar formation, stiffness, DVT, pulmonary embolism, ankle stiffness and loss of fixation due to her osteoporosis were some other specifically discussed. She had been admitted by the hospitalist service and declared medically optimized for surgery and she had wished to proceed. DESCRIPTION OF PROCEDURE: The patient was brought to the OR and an LMA was placed. Tourniquet was placed over the proximal left thigh, but was not used during the case. Left ankle was prepped and then draped. Incision was made laterally centered over the fibula and was carried down through the skin and a little bit through the subcutaneous tissues. She had stripped a lot of the tissue away from the proximal portion of the fibula. Distal portion had split to the fibula itself. There was a large anterior butterfly fragment, which was nearly the full thickness of the fibula, I was able to get her nicely reduced, but adjusting her length was a little difficult. Initially, I was going to use one of the anatomic plates, but the way the bone would sit, I could not get the plate flat against her distal bone. Straight plate was then used and placed a little bit more anteriorly. Plate was secured with 1 screw to the more proximal portion of the fibula and then with adjusting and reducing the fracture fragments, I was eventually able to get her nearly anatomic. With the bone right up against the plate, one distal lock was placed and then a second distal lock was placed. Butterfly fragment was then reduced in with an interfrag screw. On the AP, she looked excellent and was trying to get a lateral view and twisting her, my proximal screw loosened a little bit and the plate shifted some. That screw was then traded out for a locking screw and I was able to bring the plate down with a regular screw more proximally and then another locking screw in the plate. Her alignment was excellent by C-arm and wound was then irrigated using a bulb syringe and then closed using 2-0 Vicryl sutures. Skin was closed using a running 3-0 nylon. Attention was turned medially. Incision was made where I could feel the fracture fragments on the medial side, was carried down just through the skin, a little blunt dissection was carried out and I fell right into the fracture. I could again place the fracture just about anywhere but she had a fairly large piece. Gentle dissection was carried out distally and I came into one of the small branches of saphenous nerve, which was easily addressed using the electrocautery. I was able to get a nice reduction and alignment and a guidewire was run into the fragment and into the tibia. This was checked by C- arm and alignment was good. Second guidewire was then placed and a screw was placed over that guidewire and then the initial guidewire, which was larger and heavier was removed and a guidewire for the cannulated system was placed directly in its place. Second screw was placed. AP, mortise, and lateral views were taken and saved. Wound was then irrigated using a bulb syringe and again closed, the subcutaneous tissues were approximated with 2-0 Vicryl. Skin was closed using nylon. Sterile dressing and a posterior mold splint were applied in the OR. The patient had the LMA removed in the OR and was stable on transfer to the recovery room. [id number]/[facility] #: [id number] ERIN
[2019-12-16] MEDS: ceFAZolin 1 GM in Dextrose (*) 1 GM/50 ML BAG IVPB SCH (18:18)
[2019-12-16] MEDS: Atorvastatin* 10 MG TAB PO SCH (21:54)
[2019-12-16] MEDS: Latanoprost 0.005%* 2.5 ml BTL BOTH EYES SCH (21:55)
[2019-12-16] MEDS: Cetirizine* 10 MG TAB PO SCH (21:55)
[2019-12-17] MEDS ORDERED: Acetaminophen TAB* 325 MG PO ONE (00:34)
[2019-12-17] MEDS ORDERED: Piperacillin/Tazobac ADVAN(*) 3.375 GM in NS 0.9% 100 ML* 100 ML IVPB ONE (00:36)
[2019-12-17] MEDS ORDERED: NS 0.9% IV ONE (00:36)
[2019-12-17] MEDS ORDERED: Zosyn per Pharmacy* NOTE FOLLOW UP SCH (01:00)
[2019-12-17 01:24] LABS: ABS Eosinophils 0.1 10^3/ul (0-0.6); ABS Lymphocytes 1.2 10^3/ul (1.0-4.8); ABS Monocytes 1.3 10^3/ul (0-0.8); ABS Neutrophils 5.5 10^3/ul (1.5-7.7); Eosinophil % 1.5 %; Hematocrit 31 % (35-47); Hemoglobin 10.8 g/dL (12.0-16.0); Lymphocyte % 14.9 %; Mean Corpuscular HGB Conc 35 g/dL (31-36); Mean Corpuscular Hemoglobin 33 pg (27-31); Mean Corpuscular Volume 93 fL (80-97); Mean Platelet Volume 8.1 fL (7.4-10.4); Platelet Count 161 10^3/uL (150-450); Red Blood Count 3.34 10^6 /uL (3.70-4.87); Red Cell Distribution Width 13 % (10-15); White Blood Count 8.2 10^3/uL (3.5-10.8)
[2019-12-17 01:45] LABS: Albumin 3.5 g/dL (3.2-5.2); Albumin/Globulin Ratio 1.4 (1-3); BUN/Creatinine Ratio 19.1 (8-20); EGFR Non-African American 47.1 (>60); Globulin 2.5 g/dL (2-4); Potassium 3.4 mmol/L (3.5-5.0); Total Bilirubin 0.4 mg/dL (0.2-1.0)
[2019-12-17] MEDS: ceFAZolin 1 GM in Dextrose (*) 1 GM/50 ML BAG IVPB SCH ×2 (02:29→10:31)
[2019-12-17 02:56] LABS: Urine Appearance Clear; Urine Bilirubin Negative (Negative); Urine Blood Negative (Negative); Urine Color Yellow; Urine Glucose Negative (Negative); Urine Ketones Negative (Negative); Urine Nitrite Negative (Negative); Urine Protein Negative (Negative); Urine Specific Gravity 1.013 (1.010-1.030); Urine Urobilinogen Negative (Negative)
[2019-12-17] MEDS: Lactated Ringers 1000 ML Bag* 1,000 ML IV SCH (03:51)
[2019-12-17] MEDS ORDERED: ZOSYN 3.375 GM Q8H per EXTENDED INFUSION IVPB SCH ×2 (06:00)
[2019-12-17] MEDS: Benzocaine/Menthol LOZ* 1 LOZENGE MT PRN ×2 (06:01→22:38)
[2019-12-17] MEDS ORDERED: Potassium Chlor TAB* 20 MEQ TAB.ER PO ONE (07:28)
--- NOTE | 2019-12-17 08:09 | PN ---
Subjective Date of Service: 12/17/19 Interval History: Pt feels tired. Had problems with "leaky IV" at night and didn't sleep well. Also c/o left ankle pain Objective Active Medications: Acetaminophen (Tylenol Tab*) 975 mg PO TID [facility] Last Admin: 12/16/19 23:23 Dose: Not Given Al Hydrox/Mg Hydrox/Simethicone (Maalox Plus*) 30 ml PO Q6H PRN PRN Reason: INDIGESTION Aspirin (Aspirin Ec Tab*) 81 mg PO DAILY [facility] Last Admin: 12/16/19 07:26 Dose: Not Given Atorvastatin Calcium (Lipitor*) 10 mg PO BEDTIME [facility] Last Admin: 12/16/19 21:54 Dose: 10 mg Cetirizine HCl (Zyrtec*) 10 mg PO BEDTIME [facility] Last Admin: 12/16/19 21:55 Dose: 10 mg Cholecalciferol (Vitamin D Tab*) 1,000 units PO DAILY [facility] Last Admin: 12/16/19 07:27 Dose: Not Given Docusate Sodium (Colace Cap*) 100 mg PO BID [facility] Last Admin: 12/16/19 21:54 Dose: 100 mg Furosemide (Lasix Tab*) 20 mg PO DAILY PRN PRN Reason: SYSTOLIC BP GREATER THAN: Last Admin: 12/15/19 20:56 Dose: 20 mg Heparin Sodium (Porcine) (Heparin Vial(*)) 5,000 units SUBCUT Q12HR [facility] Hydralazine HCl (Apresoline Iv*) 5 mg IV SLOW PU Q6H PRN PRN Reason: HTN Hydrochlorothiazide (Hydrodiuril Tab*) 12.5 mg PO DAILY [facility] Last Admin: 12/16/19 07:47 Dose: 12.5 mg Cefazolin Sodium/Dextrose (Kefzol 1 Gm In Dextrose Duplex (*)) 1 gm in 50 mls @ 200 mls/hr IVPB Q8H [facility] Stop: 12/17/19 10:14 Last Admin: 12/17/19 02:29 Dose: 200 mls/hr Lactated Ringer's (Lactated Ringers 1000 Ml Bag*) 1,000 mls @ 100 mls/hr IV PER RATE [facility] Last Admin: 12/17/19 03:51 Dose: 100 mls/hr Piperacillin Sod/Tazobactam (Sod 3.375 gm/ Sodium Chloride) 100 mls @ 25 mls/ hr IVPB Q8H [facility] Last Admin: 12/17/19 05:55 Dose: 25 mls/hr Latanoprost (Xalatan 0.005%*) 1 drop BOTH EYES QPM [facility] Last Admin: 12/16/19 21:55 Dose: 1 drop Multivitamins/Minerals (Theragran/Minerals Tab*) 1 tab PO DAILY [facility] Last Admin: 12/16/19 07:27 Dose: Not Given Oxycodone HCl (Roxycodone Tab*) 5 mg PO Q4H PRN PRN Reason: PAIN - MODERATE Last Admin: 12/16/19 07:47 Dose: 5 mg Oxycodone HCl (Roxycodone Tab*) 10 mg PO Q4H PRN PRN Reason: PAIN - SEVERE Last Admin: 12/16/19 21:55 Dose: 10 mg Pantoprazole Sodium (Protonix Tab*) 40 mg PO DAILY [facility] Last Admin: 12/16/19 07:27 Dose: Not Given Paroxetine HCl (Paxil Tab*) 10 mg PO QAM [facility] Last Admin: 12/16/19 07:27 Dose: Not Given Pharmacy Consult (Zosyn Per Pharmacy*) 1 note FOLLOW UP .ZOSYN PER PHARMACY [facility] Throat Lozenges (Chloraseptic Jermaine*) 1 jermaine MT Q6H PRN PRN Reason: SORE THROAT Last Admin: 12/17/19 06:01 Dose: 1 jermaine Vitamin E (Vitamin E Cap*) 400 unit PO DAILY [facility] Last Admin: 12/16/19 07:27 Dose: Not Given Vital Signs - 8 hr 12/17/19 04:21 Temperature 99.2 F Pulse Rate 97 Respiratory 18 Rate Blood Pressure 114/52 (mmHg) O2 Sat by Pulse 97 Oximetry Oxygen Devices in Use Now: None Appearance: 84 yo F in nAD, aAOx3 Eyes: No Scleral Icterus, PERRLA Ears/Nose/Mouth/Throat: NL Teeth, Lips, Gums, Mucous Membranes Moist Neck: NL Appearance and Movements; NL JVP, Trachea Midline Respiratory: Symmetrical Chest Expansion and Respiratory Effort Cardiovascular: NL Sounds; No Murmurs; No JVD Abdominal: NL Sounds; No Tenderness; No Distention Lymphatic: No Cervical Adenopathy Extremities: No Clubbing, Cyanosis, - - left ankle in post op dressigns, toes well perfused Skin: No Nodules or Sclerosis Neurological: Alert and Oriented x 3, NL Muscle Strength and Tone Result Diagrams: 12/17/19 01:17 12/17/19 01:17 Additional Lab and Data: . Diagnostic Imaging: . EKG Data: . Assess/Plan/Problems-Billing Assessment: Mrs. Arreaga is an 78-year-old female patient with history of HTN, GERD, Anxiety , Glaucoma, Laryngospasms, Left breast CA, Total R hip arthroplasty, and Total Left hip arthroplasty who was admitted on 12/15/19 with a left ankle fracture. - Patient Problems (1) Ankle fracture, left Comment: - S/p L ankle ORIF with Dr Engel. - cont Pain meds prn with bowel regimen, (2) Anxiety Comment: - With depression - Continue paxil. (3) GERD (gastroesophageal reflux disease) Comment: - Continue pantoprazole. (4) Hypertension Comment: - BP controlled - Continue hctz . Pt is also lasix prn edema at home-will hold for now (5) Postoperative fever Comment: temp of 101.6 last night-poss due to atelectasis cont incentive spirometry monitor (6) DVT prophylaxis Comment: - Hep SQ. Status and Disposition: Inpatient, anticipate need for rehab.
[2019-12-17] MEDS: Cholecalciferol TAB* 1000 UNITS PO SCH (08:42)
[2019-12-17] MEDS: Acetaminophen TAB* 325 MG PO SCH ×3 (08:42→22:23)
[2019-12-17] MEDS: Aspirin EC TAB* 81 MG TAB.EC PO SCH (08:42)
[2019-12-17] MEDS: Docusate CAP* 100 MG PO SCH ×2 (08:42→22:25)
[2019-12-17] MEDS: Multivitamins/Minerals TAB PO SCH (08:43)
[2019-12-17] MEDS: Heparin VIAL(*) 5000 UNITS/ML VIAL (FIVE THOUSAND) SUBCUT SCH ×2 (08:43→22:26)
[2019-12-17] MEDS: Hydrochlorothiazide TAB* 25 MG PO SCH (08:43)
[2019-12-17] MEDS: PARoxetine HCL TAB* 10 MG PO SCH (08:44)
[2019-12-17] MEDS: Pantoprazole TAB * 40 MG TAB PO SCH (08:44)
[2019-12-17] MEDS: Vitamin E CAP* 400 UNIT PO SCH (08:44)
--- NOTE | 2019-12-17 09:01 | PN ---
Progress Note - Progress Note Date of Service: 12/17/19 SOAP: Subjective: POD #1 Left ankle ORIF. Doing ok. C/o pain to ankle. Denies CP/SOB, f/c, n/v. Objective: Vital Signs: Temp Pulse Resp BP Pulse Ox 99.2 F 85 14 134/72 93 12/17/19 08:07 12/17/19 08:07 12/17/19 08:30 12/17/19 08:07 12/17/19 08:07 Gen: A&Ox3, NAD at rest laying in bed LLE: Splint C/D/I. +f/e at MTPs. Sensation intact. Brisk cap refill. Assessment: POD #1 Left ankle ORIF Plan: NWB LLE PMRU consult placed as pt lives alone PT/OT Heparin subcutaneous for DVT ppx Will continue to follow
[2019-12-17] MEDS: oxyCODONE TAB* 5 MG TAB PO PRN ×3 (10:51→22:25)
[2019-12-17] MEDS: Cetirizine* 10 MG TAB PO SCH (22:25)
[2019-12-17] MEDS: Atorvastatin* 10 MG TAB PO SCH (22:25)
[2019-12-17] MEDS ORDERED: Magnesium Hydroxide LIQ* 30 ML UDC PO PRN (22:39)
[2019-12-17] MEDS: Latanoprost 0.005%* 2.5 ml BTL BOTH EYES SCH (23:07)
[2019-12-18] MEDS: Lactated Ringers 1000 ML Bag* 1,000 ML IV SCH (00:21)
[2019-12-18 06:05] LABS: ABS Eosinophils 0.2 10^3/ul (0-0.6); ABS Lymphocytes 1.3 10^3/ul (1.0-4.8); ABS Monocytes 1.1 10^3/ul (0-0.8); ABS Neutrophils 3.7 10^3/ul (1.5-7.7); Eosinophil % 3.3 %; Hematocrit 29 % (35-47); Hemoglobin 9.7 g/dL (12.0-16.0); Lymphocyte % 20.6 %; Mean Corpuscular HGB Conc 33 g/dL (31-36); Mean Corpuscular Hemoglobin 31 pg (27-31); Mean Corpuscular Volume 94 fL (80-97); Mean Platelet Volume 8.3 fL (7.4-10.4); Platelet Count 139 10^3/uL (150-450); Red Blood Count 3.08 10^6 /uL (3.70-4.87); Red Cell Distribution Width 14 % (10-15); White Blood Count 6.3 10^3/uL (3.5-10.8)
[2019-12-18 06:21] LABS: BUN/Creatinine Ratio 16.7 (8-20); Calcium 8.2 mg/dL (8.6-10.3); EGFR African American 84.7 (>60); Potassium 3.9 mmol/L (3.5-5.0)
--- NOTE | 2019-12-18 07:27 | PN ---
Subjective Date of Service: 12/18/19 Interval History: Adequate pain control. Constipated. Sore throat and hoarse from being intubated. Eating OK. Objective Active Medications: Acetaminophen (Tylenol Tab*) 975 mg PO TID [facility] Last Admin: 12/17/19 22:23 Dose: 975 mg Al Hydrox/Mg Hydrox/Simethicone (Maalox Plus*) 30 ml PO Q6H PRN PRN Reason: INDIGESTION Last Admin: 12/17/19 13:40 Dose: 30 ml Aspirin (Aspirin Ec Tab*) 81 mg PO DAILY [facility] Last Admin: 12/17/19 08:42 Dose: 81 mg Atorvastatin Calcium (Lipitor*) 10 mg PO BEDTIME [facility] Last Admin: 12/17/19 22:25 Dose: 10 mg Cetirizine HCl (Zyrtec*) 10 mg PO BEDTIME [facility] Last Admin: 12/17/19 22:25 Dose: 10 mg Cholecalciferol (Vitamin D Tab*) 1,000 units PO DAILY [facility] Last Admin: 12/17/19 08:42 Dose: 1,000 units Docusate Sodium (Colace Cap*) 100 mg PO BID [facility] Last Admin: 12/17/19 22:25 Dose: 100 mg Heparin Sodium (Porcine) (Heparin Vial(*)) 5,000 units SUBCUT Q12HR [facility] Last Admin: 12/17/19 22:26 Dose: 5,000 units Hydralazine HCl (Apresoline Iv*) 5 mg IV SLOW PU Q6H PRN PRN Reason: HTN Hydrochlorothiazide (Hydrodiuril Tab*) 12.5 mg PO DAILY [facility] Last Admin: 12/17/19 08:43 Dose: 12.5 mg Lactated Ringer's (Lactated Ringers 1000 Ml Bag*) 1,000 mls @ 100 mls/hr IV PER RATE [facility] Last Admin: 12/18/19 00:21 Dose: 100 mls/hr Latanoprost (Xalatan 0.005%*) 1 drop BOTH EYES QPM [facility] Last Admin: 12/17/19 23:07 Dose: 1 drop Magnesium Hydroxide (Milk Of Magnesia Liq*) 30 ml PO Q6H PRN PRN Reason: CONSTIPATION Last Admin: 12/17/19 23:06 Dose: 30 ml Multivitamins/Minerals (Theragran/Minerals Tab*) 1 tab PO DAILY [facility] Last Admin: 12/17/19 08:43 Dose: 1 tab Oxycodone HCl (Roxycodone Tab*) 5 mg PO Q4H PRN PRN Reason: PAIN - MODERATE Last Admin: 12/17/19 22:25 Dose: 5 mg Oxycodone HCl (Roxycodone Tab*) 10 mg PO Q4H PRN PRN Reason: PAIN - SEVERE Last Admin: 12/17/19 10:51 Dose: 10 mg Pantoprazole Sodium (Protonix Tab*) 40 mg PO DAILY [facility] Last Admin: 12/17/19 08:44 Dose: 40 mg Paroxetine HCl (Paxil Tab*) 10 mg PO QAM [facility] Last Admin: 12/17/19 08:44 Dose: 10 mg Throat Lozenges (Chloraseptic Jermaine*) 1 jermaine MT Q6H PRN PRN Reason: SORE THROAT Last Admin: 12/17/19 22:38 Dose: 1 jermaine Vitamin E (Vitamin E Cap*) 400 unit PO DAILY [facility] Last Admin: 12/17/19 08:44 Dose: 400 unit Vital Signs - 8 hr 12/18/19 12/18/19 12/18/19 00:11 00:25 03:57 Temperature 99.1 F 98.8 F Pulse Rate 71 71 Respiratory 16 16 16 Rate Blood Pressure 124/55 144/63 (mmHg) O2 Sat by Pulse 95 95 Oximetry Oxygen Devices in Use Now: None Appearance: Alert, partly up in bed. In good spirits. Looks comfortable. Eyes: No Scleral Icterus Ears/Nose/Mouth/Throat: Clear Oropharnyx, Mucous Membranes Moist Respiratory: Symmetrical Chest Expansion and Respiratory Effort, Clear to Auscultation, Clear to Percussion Cardiovascular: NL Sounds; No Murmurs; No JVD, RRR, No Edema, - Extremities: No Edema, No Clubbing, Cyanosis, - - L lower leg bandaged with elastic dressing, and elevated. Skin: No Rash or Ulcers, No Nodules or Sclerosis, - Neurological: Alert and Oriented x 3, NL Sensation Result Diagrams: 12/18/19 05:46 12/18/19 05:46 Additional Lab and Data: . Microbiology and Other Data: Microbiology 12/17/19 01:07 Aerobic Blood Culture - Preliminary Blood Venous No Growth Day 1 Anaerobic Blood Culture - Preliminary No Growth Day 1 12/17/19 01:17 Aerobic Blood Culture - Preliminary Blood Venous No Growth Day 1 Anaerobic Blood Culture - Preliminary No Growth Day 1 Diagnostic Imaging: . EKG Data: . Assess/Plan/Problems-Billing Assessment: Mrs. Arreaga is an 78-year-old female patient with history of HTN, GERD, Anxiety , Glaucoma, Laryngospasms, Left breast CA, Total R hip arthroplasty, and Total Left hip arthroplasty who was admitted on 12/15/19 with a left ankle fracture. - Patient Problems (1) Ankle fracture, left Current Visit: Yes Status: Acute Code(s): S82.892A - OTH FRACTURE OF LEFT LOWER LEG, INIT FOR CLOS FX SNOMED Code(s): 02193697 Comment: - S/p L ankle ORIF with Dr Engel. - cont pain meds prn; scheduled PEG ordered, one dose mag citrate 12/18. PMRU eval requested. Continue OT, PT. (2) Hypertension Current Visit: No Status: Acute Code(s): I10 - ESSENTIAL (PRIMARY) HYPERTENSION SNOMED Code(s): 36244250 Comment: - BP controlled - Continue thiazide . Pt is also lasix prn edema at home-will hold for now (3) Anxiety Current Visit: Yes Status: Acute Code(s): F41.9 - ANXIETY DISORDER, UNSPECIFIED SNOMED Code(s): 94513968 Comment: - With depression - Continue paxil. Status and Disposition: Inpatient, anticipate need for rehab.
[2019-12-18] MEDS: Polyethylene Glycol 3350* 17 GM PACKET PO SCH ×2 (08:49→20:46)
[2019-12-18] MEDS: Acetaminophen TAB* 325 MG PO SCH ×3 (08:49→20:45)
[2019-12-18] MEDS: Vitamin E CAP* 400 UNIT PO SCH (08:50)
[2019-12-18] MEDS: Hydrochlorothiazide TAB* 25 MG PO SCH (08:50)
[2019-12-18] MEDS: oxyCODONE TAB* 5 MG TAB PO PRN (08:51)
[2019-12-18] MEDS: PARoxetine HCL TAB* 10 MG PO SCH (08:51)
[2019-12-18] MEDS: Pantoprazole TAB * 40 MG TAB PO SCH (08:51)
[2019-12-18] MEDS: Aspirin EC TAB* 81 MG TAB.EC PO SCH (08:51)
[2019-12-18] MEDS: Cholecalciferol TAB* 1000 UNITS PO SCH (08:51)
[2019-12-18] MEDS: Docusate CAP* 100 MG PO SCH ×2 (08:52→20:45)
[2019-12-18] MEDS: Multivitamins/Minerals TAB PO SCH (08:52)
[2019-12-18] MEDS: Heparin VIAL(*) 5000 UNITS/ML VIAL (FIVE THOUSAND) SUBCUT SCH ×2 (08:53→20:46)
--- NOTE | 2019-12-18 09:57 | PN ---
Progress Note - Progress Note Date of Service: 12/18/19 SOAP: Subjective: []Pt seen at bedside. She feels well without CP, SOB, dizziness, nausea. L ankle pain well controlled. Lives alone and will need rehab, [facility]RU first choice and [place] second choice. Objective: []Gen: A&Ox3, NAD at rest in a chair LLE: Splint C/D/I. +f/e at MTPs. Sensation intact. Brisk cap refill. Assessment: POD #3 Left ankle ORIF Plan: NWB LLE PMRU consult in place PT/OT Heparin subcutaneous for DVT ppx Will continue to follow, ready for dc from ortho standpoint Vital Signs Temp 98.8 F 12/18/19 07:46 Pulse 66 12/18/19 07:46 Resp 18 12/18/19 08:51 BP 159/74 12/18/19 07:46 Pulse Ox 97 12/18/19 07:46 Intake & Output 12/17/19 12/18/19 12/18/19 18:59 06:59 18:59 Intake Total 480 2220 Output Total 1500 Balance 480 720 Intake: IV Fluids 980 LR 980 Oral 480 1240 Output: Urine 1500 Other: Estimated Void Large # Voids 1 Laboratory Last Values WBC 6.3 10^3/uL (3.5-10.8) 12/18/19 05:46 RBC 3.08 10^6 /uL (3.70-4.87) L 12/18/19 05:46 Hgb 9.7 g/dL (12.0-16.0) L 12/18/19 05:46 Hct 29 % (35-47) L 12/18/19 05:46 MCV 94 fL (80-97) 12/18/19 05:46 MCH 31 pg (27-31) 12/18/19 05:46 MCHC 33 g/dL (31-36) 12/18/19 05:46 RDW 14 % (10-15) 12/18/19 05:46 Plt Count 139 10^3/uL (150-450) L 12/18/19 05:46 MPV 8.3 fL (7.4-10.4) 12/18/19 05:46 Neut % (Auto) 58.8 % 12/18/19 05:46 Lymph % (Auto) 20.6 % 12/18/19 05:46 [place] % (Auto) 16.9 % 12/18/19 05:46 Eos % (Auto) 3.3 % 12/18/19 05:46 Baso % (Auto) 0.4 % 12/18/19 05:46 Absolute Neuts (auto) 3.7 10^3/ul (1.5-7.7) 12/18/19 05:46 Absolute Lymphs (auto) 1.3 10^3/ul (1.0-4.8) 12/18/19 05:46 Absolute Monos (auto) 1.1 10^3/ul (0-0.8) H 12/18/19 05:46 Absolute Eos (auto) 0.2 10^3/ul (0-0.6) 12/18/19 05:46 Absolute Basos (auto) 0.0 10^3/ul (0-0.2) 12/18/19 05:46 Absolute Nucleated RBC 0.0 10^3/ul 12/18/19 05:46 Nucleated RBC % 0.0 12/18/19 05:46 INR (Anticoag Therapy) 0.97 (0.82-1.09) 12/15/19 13:33 APTT 26.2 seconds (26.0-38.0) 12/15/19 13:33 Sodium 140 mmol/L (135-145) 12/18/19 05:46 Potassium 3.9 mmol/L (3.5-5.0) 12/18/19 05:46 Chloride 106 mmol/L (101-111) 12/18/19 05:46 Carbon Dioxide 29 mmol/L (22-32) 12/18/19 05:46 Anion Gap 5 mmol/L (2-11) 12/18/19 05:46 BUN 13 mg/dL (6-24) 12/18/19 05:46 Creatinine 0.78 mg/dL (0.51-0.95) 12/18/19 05:46 Est GFR ( Amer) 84.7 (>60) 12/18/19 05:46 Est GFR (Non-Af Amer) 70.0 (>60) 12/18/19 05:46 BUN/Creatinine Ratio 16.7 (8-20) 12/18/19 05:46 Glucose 121 mg/dL (70-100) H 12/18/19 05:46 Lactic Acid 1.4 mmol/L (0.5-2.0) 12/17/19 03:36 Calcium 8.2 mg/dL (8.6-10.3) L 12/18/19 05:46 Total Bilirubin 0.40 mg/dL (0.2-1.0) 12/17/19 01:17 AST 22 U/L (13-39) 12/17/19 01:17 ALT 12 U/L (7-52) 12/17/19 01:17 Alkaline Phosphatase 57 U/L (34-104) 12/17/19 01:17 Total Protein 6.0 g/dL (6.4-8.9) L 12/17/19 01:17 Albumin 3.5 g/dL (3.2-5.2) 12/17/19 01:17 Globulin 2.5 g/dL (2-4) 12/17/19 01:17 Albumin/Globulin Ratio 1.4 (1-3) 12/17/19 01:17 Urine Color Yellow 12/17/19 02:40 Urine Appearance Clear 12/17/19 02:40 Urine pH 6.0 (5-9) 12/17/19 02:40 Ur Specific [place] 1.013 (1.010-1.030) 12/17/19 02:40 Urine Protein Negative (Negative) 12/17/19 02:40 Urine Ketones Negative (Negative) 12/17/19 02:40 Urine Blood Negative (Negative) 12/17/19 02:40 Urine Nitrate Negative (Negative) 12/17/19 02:40 Urine Bilirubin Negative (Negative) 12/17/19 02:40 Urine Urobilinogen Negative (Negative) 12/17/19 02:40 Ur Leukocyte Esterase Negative (Negative) 12/17/19 02:40 Urine Glucose Negative (Negative) 12/17/19 02:40 Urine Ascorbic Acid * (Negative) A 12/17/19 02:40
[2019-12-18] MEDS ORDERED: Magnesium CITRATE* 300 ML BTL PO ONE (10:00)
[2019-12-18] MEDS: Latanoprost 0.005%* 2.5 ml BTL BOTH EYES SCH ×2 (18:24→21:46)
[2019-12-18] MEDS: Atorvastatin* 10 MG TAB PO SCH (20:45)
[2019-12-18] MEDS: Cetirizine* 10 MG TAB PO SCH (20:45)
[2019-12-18] MEDS: Benzocaine/Menthol LOZ* 1 LOZENGE MT PRN (23:55)
[2019-12-19] MEDS: oxyCODONE TAB* 5 MG TAB PO PRN ×2 (03:43→09:17)
--- NOTE | 2019-12-19 07:48 | PN ---
Progress Note - Progress Note Date of Service: 12/19/19 SOAP: Subjective: []Pt seen and examined at bedside. She feels well without CP, SOB, dizziness or nausea. Ankle with mild pain, well controlled. Objective: []Gen: A&Ox3, NAD at rest in a chair LLE: Splint C/D/I. +f/e at MTPs without pain. Sensation intact. Brisk cap refill. Assessment: POD #4 Left ankle ORIF Plan: NWB LLE PMRU consult in place PT/OT Heparin subcutaneous for DVT ppx Will continue to follow, ready for dc from ortho standpoint Vital Signs Temp 99.3 F 12/19/19 07:42 Pulse 78 12/19/19 07:42 Resp 20 12/19/19 07:42 BP 168/78 12/19/19 07:42 Pulse Ox 94 12/19/19 07:42 Intake & Output 12/18/19 12/19/19 12/19/19 18:59 06:59 18:59 Intake Total 480 600 Output Total 1150 1300 Balance -670 -700 Intake: Oral 480 600 Output: Urine 1150 1300 Other: # Bowel Movements 1 Estimated Stool Amount Medium Large Laboratory Last Values WBC 6.3 10^3/uL (3.5-10.8) 12/18/19 05:46 RBC 3.08 10^6 /uL (3.70-4.87) L 12/18/19 05:46 Hgb 9.7 g/dL (12.0-16.0) L 12/18/19 05:46 Hct 29 % (35-47) L 12/18/19 05:46 MCV 94 fL (80-97) 12/18/19 05:46 MCH 31 pg (27-31) 12/18/19 05:46 MCHC 33 g/dL (31-36) 12/18/19 05:46 RDW 14 % (10-15) 12/18/19 05:46 Plt Count 139 10^3/uL (150-450) L 12/18/19 05:46 MPV 8.3 fL (7.4-10.4) 12/18/19 05:46 Neut % (Auto) 58.8 % 12/18/19 05:46 Lymph % (Auto) 20.6 % 12/18/19 05:46 [place] % (Auto) 16.9 % 12/18/19 05:46 Eos % (Auto) 3.3 % 12/18/19 05:46 Baso % (Auto) 0.4 % 12/18/19 05:46 Absolute Neuts (auto) 3.7 10^3/ul (1.5-7.7) 12/18/19 05:46 Absolute Lymphs (auto) 1.3 10^3/ul (1.0-4.8) 12/18/19 05:46 Absolute Monos (auto) 1.1 10^3/ul (0-0.8) H 12/18/19 05:46 Absolute Eos (auto) 0.2 10^3/ul (0-0.6) 12/18/19 05:46 Absolute Basos (auto) 0.0 10^3/ul (0-0.2) 12/18/19 05:46 Absolute Nucleated RBC 0.0 10^3/ul 12/18/19 05:46 Nucleated RBC % 0.0 12/18/19 05:46 INR (Anticoag Therapy) 0.97 (0.82-1.09) 12/15/19 13:33 APTT 26.2 seconds (26.0-38.0) 12/15/19 13:33 Sodium 140 mmol/L (135-145) 12/18/19 05:46 Potassium 3.9 mmol/L (3.5-5.0) 12/18/19 05:46 Chloride 106 mmol/L (101-111) 12/18/19 05:46 Carbon Dioxide 29 mmol/L (22-32) 12/18/19 05:46 Anion Gap 5 mmol/L (2-11) 12/18/19 05:46 BUN 13 mg/dL (6-24) 12/18/19 05:46 Creatinine 0.78 mg/dL (0.51-0.95) 12/18/19 05:46 Est GFR ( Amer) 84.7 (>60) 12/18/19 05:46 Est GFR (Non-Af Amer) 70.0 (>60) 12/18/19 05:46 BUN/Creatinine Ratio 16.7 (8-20) 12/18/19 05:46 Glucose 121 mg/dL (70-100) H 12/18/19 05:46 Lactic Acid 1.4 mmol/L (0.5-2.0) 12/17/19 03:36 Calcium 8.2 mg/dL (8.6-10.3) L 12/18/19 05:46 Total Bilirubin 0.40 mg/dL (0.2-1.0) 12/17/19 01:17 AST 22 U/L (13-39) 12/17/19 01:17 ALT 12 U/L (7-52) 12/17/19 01:17 Alkaline Phosphatase 57 U/L (34-104) 12/17/19 01:17 Total Protein 6.0 g/dL (6.4-8.9) L 12/17/19 01:17 Albumin 3.5 g/dL (3.2-5.2) 12/17/19 01:17 Globulin 2.5 g/dL (2-4) 12/17/19 01:17 Albumin/Globulin Ratio 1.4 (1-3) 12/17/19 01:17 Urine Color Yellow 12/17/19 02:40 Urine Appearance Clear 12/17/19 02:40 Urine pH 6.0 (5-9) 12/17/19 02:40 Ur Specific [place] 1.013 (1.010-1.030) 12/17/19 02:40 Urine Protein Negative (Negative) 12/17/19 02:40 Urine Ketones Negative (Negative) 12/17/19 02:40 Urine Blood Negative (Negative) 12/17/19 02:40 Urine Nitrate Negative (Negative) 12/17/19 02:40 Urine Bilirubin Negative (Negative) 12/17/19 02:40 Urine Urobilinogen Negative (Negative) 12/17/19 02:40 Ur Leukocyte Esterase Negative (Negative) 12/17/19 02:40 Urine Glucose Negative (Negative) 12/17/19 02:40 Urine Ascorbic Acid * (Negative) A 12/17/19 02:40
[2019-12-19] MEDS: Polyethylene Glycol 3350* 17 GM PACKET PO SCH ×2 (09:16→21:21)
[2019-12-19] MEDS: Multivitamins/Minerals TAB PO SCH (09:17)
[2019-12-19] MEDS: PARoxetine HCL TAB* 10 MG PO SCH (09:17)
[2019-12-19] MEDS: Cholecalciferol TAB* 1000 UNITS PO SCH (09:17)
[2019-12-19] MEDS: Docusate CAP* 100 MG PO SCH ×2 (09:18→21:17)
[2019-12-19] MEDS: Vitamin E CAP* 400 UNIT PO SCH (09:18)
[2019-12-19] MEDS: Acetaminophen TAB* 325 MG PO SCH ×3 (09:18→21:17)
[2019-12-19] MEDS: Pantoprazole TAB * 40 MG TAB PO SCH (09:18)
[2019-12-19] MEDS: Aspirin EC TAB* 81 MG TAB.EC PO SCH (09:19)
[2019-12-19] MEDS: Heparin VIAL(*) 5000 UNITS/ML VIAL (FIVE THOUSAND) SUBCUT SCH ×2 (09:19→21:18)
[2019-12-19] MEDS: Hydrochlorothiazide TAB* 25 MG PO SCH (09:19)
--- NOTE | 2019-12-19 14:01 | DS ---
CC: [facility]; Dr. Rambo Engel * DATE OF ADMISSION: 12/15/2019. ANTICIPATED DATE OF DISCHARGE: 12/20/2019. PRIMARY CARE PHYSICIAN: None, [facility]. ORTHOPEDIC SURGEON: Dr. Rambo Engel. ATTENDING PHYSICIAN: Dr. Naheed Alba * (dictated by LAVELLE Ardon). PRIMARY DIAGNOSIS: Left ankle fracture, status post ORIF 12/16/2019. SECONDARY DIAGNOSES: 1. Hypertension. 2. GERD. 3. IBS. 4. History of left breast cancer. 5. Anxiety. 6. Glaucoma. STUDIES WHILE IN THE HOSPITAL: 1. Left foot x-ray: Impression: Dislocation of the talocrural joint. Displaced fractures of the medial and lateral malleoli. 2. Left ankle, two views: Impression: Talocrural joint fracture dislocation. The talus and remainder of the foot are dislocated posteriorly relative to the dominant portion of the tibial plafond. Comminuted lateral malleolus fracture with one bone width lateral and posterior displacement with the lateral malleolus fragment standing aligned with the talus. Avulsion fracture at the medial malleolus is also displaced posteriorly with the talus. Severe diffuse soft tissue swelling. No subcutaneous emphysema evident. 3. Left ankle, three views: Impression: Again noted are fractures of the distal tibia and distal fibula with persistent anterior displacement of the tibia with respect to the talus. 4. Chest x-ray: Impression: No active cardiopulmonary disease. PROCEDURES WHILE IN THE HOSPITAL: Left ankle open reduction/internal fixation due to left ankle fracture performed by Dr. Engel on 12/16/2019. DISCHARGE MEDICATIONS: Home medications: 1. Ascorbic acid 250 mg p.o. two to three times per day. 2. Aspirin 81 mg p.o. daily. 3. Cetirizine 10 mg p.o. at bedtime. 4. Cholecalciferol 1,000 units p.o. daily. 5. Conjugated Estrogens vaginal cream one application vaginally weekly. 6. Cranberry 400 mg p.o. daily. 7. Furosemide 20 mg p.o. b.i.d. 8. Glucosamine 1500 mg p.o. b.i.d. 9. Hydrochlorothiazide 12.5 mg p.o. daily. 10. Latanoprost one drop to both eyes at bedtime. 11. Levocetirizine 5 mg p.o. at bedtime. 12. Multivitamin/minerals one tab p.o. daily. 13. Fosters-3 fatty acids 1,000 mg p.o. t.i.d. 14. Pantoprazole 40 mg p.o. daily. 15. Paroxetine 10 mg p.o. daily. 16. Simvastatin 20 mg p.o. at bedtime. 17. CoQ10 200 mg p.o. daily. 18. Vitamin E cap 400 mg p.o. daily. New home medications: 1. Oxycodone 5 to 10 mg p.o. q.4 hours prn pain. 2. Enoxaparin 40 mg subcu q.24 hours times 30 days postop. HISTORY OF PRESENT ILLNESS/HOSPITAL COURSE: Ms. Arreaga is an 84-year-old female with a past medical history of hypertension who presented to the ER on with complaints of mechanical fall with resulting left ankle pain. The patient arrived at the ER and was found to have a talocrural joint fracture dislocation with lateral and medial malleoli fractures. Orthopedics was consulted and made recommendations. Initially, the patient was sedated and the ankle was reduced. Repeat imaging showed recurrent displacement. Therefore, a discussion was had with the patient and her daughter and an agreement was made to perform an ORIF the following morning due to continued joint instability. The following day, the patient had open reduction and internal fixation of the left ankle joint. She tolerated the procedure well. She worked with Physical Therapy who recommended subacute rehab. The patient was agreeable to this and has accepted a bed offer at [facility] for subacute rehab. The patient notably developed a postoperative fever with a T-max of 101.6 on postop day one. She has no other symptoms. Chest x-ray was unremarkable. The likely cause of her postop fever was atelectasis; therefore, she is encouraged to continue to use incentive spirometry. At the time of discharge, the patient continues to have some left ankle pain that she describes as burning at the incision site. She denies dizziness, lightheadedness, vision changes, difficulty speaking or swallowing, chest pain, shortness of breath, cough, fever , chills, abdominal pain, nausea, vomiting, diarrhea, or constipation. She has no other complaints today. Ms. Arreaga is stable for discharge to [facility]. PHYSICAL EXAMINATION: General: Ms. Arreaga is a well-developed, well-nourished , obese, older white female who is sitting in a chair with the left lower extremity elevated. She appears to be in no acute distress. She is seen eating lunch. She is pleasant, cooperative, and appropriate. Breathing comfortably on room air. Vital signs: Temperature 99.4 oral, heart rate 78, respiratory rate 16, oxygen saturation 97 percent on room air, blood pressure 151/68. HEENT: Normocephalic/atraumatic. PERRL, EOMI. Hearing is grossly intact. Oral mucous membranes are moist, there are no lesions. The pharynx is clear. Tongue is at midline. Palate is elevated symmetrically. Cardiovascular : Regular rate and rhythm with S1, S2 present. No murmurs, rubs, clicks, or gallops. There is no JVD or peripheral edema. Pulmonary: Symmetrical chest expansion without use of accessory muscles. Clear to auscultation bilaterally. No rhonchi, wheezes, or rales. Abdomen: Bowel sounds in all quadrants. Soft and nontender to palpation. Musculoskeletal: There is a clean, dry, intact cast in place to the left ankle with overlying clean, dry, and intact Craig. Sensation is intact distally. The patient is able to move distal digits. Neuro: The patient is awake. She is alert and oriented times three. Cranial nerves II through XII are grossly intact. Sensation intact distally with ability to move distal digits bilateral lower extremities. DISCHARGE PLAN: Ms. Arreaga will be discharged to [facility]. CONDITION ON DISCHARGE: Good. DIET: Resume home diet. ACTIVITY: Nonweightbearing left lower extremity. MEDICATIONS: 1. Continue pain management and bowel regimen. 2. Continue Lovenox subcu daily times 30 days postop. EDUCATION: 1. Follow-up with primary care provider at discharge from subacute rehab. 2. Follow-up with Orthopedics, Dr. Engel, within two weeks. 3. Return for any concerns or signs of infection. This is a summarized report of a complex medical history and hospital stay. For further details, please see the entire medical record. TIME SPENT: Approximately 35 minutes were spent on this discharge, greater than half of that time was spent [id number] with the patient discussing discharge plans and instructions. LAVELLE HELM [id number]/[facility] #: [id number]/CPS #: [id number] ERIN
--- NOTE | 2019-12-19 14:10 | DS ---
ADDENDUM TO DISCHARGE SUMMARY DATE OF ADMISSION: 12/15/2019. DATE OF DISCHARGE: 12/19/2019. DISCHARGE MEDICATIONS: New home medications: Enoxaparin 40 mg subcu q.24 hours times 30 days postop. LAVELLE HELM [id number]/[facility] #: [id number]
[2019-12-19] MEDS ORDERED: Conjugated Estrogens VAG CM* 42.5 gm TUBE VAGINAL SCH (21:00)
[2019-12-19] MEDS: Cetirizine* 10 MG TAB PO SCH (21:17)
[2019-12-19] MEDS: Atorvastatin* 10 MG TAB PO SCH (21:17)
[2019-12-19] MEDS: Latanoprost 0.005%* 2.5 ml BTL BOTH EYES SCH (23:26)
[2019-12-20] MEDS: Heparin VIAL(*) 5000 UNITS/ML VIAL (FIVE THOUSAND) SUBCUT SCH (08:18)
[2019-12-20] MEDS: Hydrochlorothiazide TAB* 25 MG PO SCH (08:18)
[2019-12-20] MEDS: Polyethylene Glycol 3350* 17 GM PACKET PO SCH (08:18)
[2019-12-20] MEDS: Multivitamins/Minerals TAB PO SCH (08:20)
[2019-12-20] MEDS: Acetaminophen TAB* 325 MG PO SCH (08:20)
[2019-12-20] MEDS: Vitamin E CAP* 400 UNIT PO SCH (08:22)
[2019-12-20] MEDS: Cholecalciferol TAB* 1000 UNITS PO SCH (08:22)
[2019-12-20] MEDS: Aspirin EC TAB* 81 MG TAB.EC PO SCH (08:22)
[2019-12-20] MEDS: Pantoprazole TAB * 40 MG TAB PO SCH (08:23)
[2019-12-20] MEDS: Docusate CAP* 100 MG PO SCH (08:23)
[2019-12-20] MEDS: PARoxetine HCL TAB* 10 MG PO SCH (08:25)
[2019-12-20 08:55] VITALS: BP 162/70
[2019-12-20] MEDS ORDERED: Ondansetron ODT TAB* 4 MG SL PRN (08:59)
[2019-12-20] MEDS ORDERED: Ondansetron ODT TAB* 4 MG ONE (09:03)
== END 2019-12-20 09:23 | DRG 493 ==
LOC: ED 12:18 → SSU 16:14
PROVIDERS: ADMIT Internal Medicine; ATTEND Internal Medicine
PROC: 0QSKXZZ Reposition Left Fibula, External Approach (ICD-10-PCS; 2019-12-15)
PROC: 0QSHXZZ Reposition Left Tibia, External Approach (ICD-10-PCS; 2019-12-15)
PROC: 0QSH04Z Reposition Left Tibia with Internal Fixation Device, Open Approach (ICD-10-PCS; 2019-12-16)
PROC: 0QSK04Z Reposition Left Fibula with Internal Fixation Device, Open Approach (ICD-10-PCS; principal; 2019-12-16 11:00)
DX: S82.52XA Displaced fracture of medial malleolus of left tibia, initial encounter for closed fracture (principal); J98.11 Atelectasis; K21.9 Gastro-esophageal reflux disease without esophagitis; F41.9 Anxiety disorder, unspecified; H40.9 Unspecified glaucoma; S92.102A Unspecified fracture of left talus, initial encounter for closed fracture; R50.82 Postprocedural fever; S82.62XA Displaced fracture of lateral malleolus of left fibula, initial encounter for closed fracture; K58.9 Irritable bowel syndrome, unspecified; M19.90 Unspecified osteoarthritis, unspecified site; N18.9 Chronic kidney disease, unspecified; I12.9 Hypertensive chronic kidney disease with stage 1 through stage 4 chronic kidney disease, or unspecified chronic kidney disease; Z96.643 Presence of artificial hip joint, bilateral; J38.5 Laryngeal spasm; E78.5 Hyperlipidemia, unspecified; F41.8 Other specified anxiety disorders; Z66 Do not resuscitate; Z85.3 Personal history of malignant neoplasm of breast; Z79.82 Long term (current) use of aspirin; Z79.899 Other long term (current) drug therapy
CPT/HCPCS: 36415; 71045; 80048; 80053; 81003; 83605; 85025; 85027; 85610; 85730; 87040; 93005; 99285; A9270-GY; C1713; C1776; J0690; J1644; J2405; J2543; J2704; J3010; J3490